=== PATIENT | male | born 1965 | race Asian ===

== ENCOUNTER 2020-01-01 19:48 | Emergency (ER) | payer OTHER ==
[2020-01-01] MEDS ORDERED: ACETAMINOPHEN 500 MG TAB PO ONE (20:18)
--- NOTE | 2020-01-01 20:55 | Emergency Department Report ---
ED General Adult HPI - General Chief complaint: Dyspnea/Respdistress Stated complaint: FLU LIKE SYMPTOMS Time Seen by Provider: 01/01/20 20:03 Source: patient, EMS ( EMS documentation not available at time of chart dictation ), RN notes reviewed Mode of arrival: Stretcher Limitations: No Limitations - History of Present Illness Initial comments: Please note that for the entire history and physical examination, I had on complete personal protective equipment The patient is a 54-year-old gentleman. He is not known to myself previously. He states he does not have any chronic medical conditions. He presents to the ER with a complaint of painless weakness for 1 day. No cough. No sore throat, no rhinorrhea. Patient has been going outside, and working, he works in construction, however, he reports using a facemask. He believes that he is had decreased appetite for a few days, mild generalized weakness, but today, he felt quite weak while taking a shower. There is no complaint of headache, neck pain, chest pain, abdominal pain, shortness of breath, focal extremity weakness and or numbness, and/or urinary symptoms. The patient does not describe exacerbating or relieving factors, or radiation. -: days(s) Severity scale (0 -10): 0 Quality: other Consistency: other Improves with: other Worsens with: other Associated Symptoms: other - Related Data Previous Rx's Medication Instructions Recorded Last Taken Type Acetaminophen [Non-Aspirin Extra 500 mg PO Q6HR PRN #30 tablet 01/01/20 Unknown Rx Strength] Albuterol Sulfate [Proair 90 mcg IH Q4HR PRN #2 aer.pow.ba 01/01/20 Unknown Rx Respiclick] Amoxicillin [Trimox CAP] 1,000 mg PO Q8H #28 capsule 01/01/20 Unknown Rx Azithromycin [Zithromax TAB] 250 mg PO QDAY #4 tablet 01/01/20 Unknown Rx Allergies Allergy/AdvReac Type Severity Reaction Status Date / Time No Known Allergies Allergy Unverified 01/01/20 20:09 ED Review of Systems ROS: Stated complaint: FLU LIKE SYMPTOMS Other details as noted in HPI Constitutional: fever, malaise, weakness Eyes: denies: eye discharge ENT: denies: congestion Respiratory: denies: wheezing Cardiovascular: denies: syncope Gastrointestinal: denies: abdominal pain Genitourinary: denies: dysuria Musculoskeletal: as per HPI Skin: as per HPI Neurological: as per HPI, weakness Psychiatric: as per HPI ED Past Medical Hx - Past Medical History Previous Medical History?: No - Surgical History Past Surgical History?: No - Social History Smoking Status: Never Smoker Substance Use Type: None - Medications Home Medications: Home Medications Medication Instructions Recorded Confirmed Last Taken Type Acetaminophen [Non-Aspirin Extra 500 mg PO Q6HR PRN #30 tablet 01/01/20 Unknown Rx Strength] Albuterol Sulfate [Proair 90 mcg IH Q4HR PRN #2 aer.pow.ba 01/01/20 Unknown Rx Respiclick] Amoxicillin [Trimox CAP] 1,000 mg PO Q8H #28 capsule 01/01/20 Unknown Rx Azithromycin [Zithromax TAB] 250 mg PO QDAY #4 tablet 01/01/20 Unknown Rx ED Physical Exam - General Limitations: No Limitations General appearance: alert, anxious - Head Head exam: Present: atraumatic, normocephalic - Eye Eye exam: Present: normal appearance, EOMI. Absent: nystagmus - ENT ENT exam: Present: normal exam, mucous membranes moist, normal external ear exam, other (Speaking in full sentences, with no stridor or dysphonia) - Neck Neck exam: Present: normal inspection, full ROM. Absent: tenderness, meningismus - Respiratory Respiratory exam: Absent: respiratory distress, stridor - Cardiovascular Cardiovascular Exam: Present: tachycardia - GI/Abdominal GI/Abdominal exam: Present: soft, normal bowel sounds. Absent: distended, tenderness, guarding, rebound, rigid - Rectal Rectal exam: Present: deferred - Extremities Exam Extremities exam: Present: normal inspection, full ROM, other (2+ pulses noted in the bilateral upper and lower extremities. There is no palpable cord. negative Homans sign. Muscular compartments are soft. The pelvis is stable.). Absent: pedal edema, calf tenderness - Back Exam Back exam: Present: normal inspection, full ROM. Absent: tenderness, CVA tenderness (R), CVA tenderness (L), paraspinal tenderness, vertebral tenderness - Neurological Exam Neurological exam: Present: alert, other (There is no facial droop. The tongue is midline. Extraocular movements are intact bilaterally. There is 5 out of 5 strength in bilateral upper and lower extremities. Sensation is intact to light touch bilateral upper and lower extremities. ) - Psychiatric Psychiatric exam: Present: anxious - Skin Skin exam: Present: warm, dry, intact, normal color. Absent: rash ED Course Vital Signs 01/01/20 01/01/20 01/01/20 20:06 20:32 22:16 Temperature 101.2 F H 98.6 F Pulse Rate 102 H 86 Respiratory 25 H 16 19 Rate Blood Pressure 125/68 101/60 [Left] O2 Sat by Pulse 96 100 Oximetry 01/01/20 23:45 Temperature 98.2 F Pulse Rate 72 Respiratory 16 Rate Blood Pressure 112/65 [Left] O2 Sat by Pulse 98 Oximetry - Reevaluation(s) Reevaluation #1: 01/01/20 20:52 Differential diagnosis, including but not limited to: Influenza-like illness, pneumonia, viral syndrome, suspected coronavirus infection Assessment and plan: 54-year-old gentleman with a few days of generalized w eakness, today slightly worse, by history, with fever, low-grade tachycardia, saturating well on room air, suspect coronavirus infection. We will obtain x- ray of the chest, place patient on isolation, and give him acetaminophen for his symptoms. Given lack of desaturation, a few days into his clinical course, lack of endorsed medical comorbidities, the patient is suitable for trial of outpatient management, with generalized supportive care, and return precautions. Reevaluation #2: 01/01/20 21:13 X-ray suggests multi lobar pneumonia, laboratory studies will be sent to risk stratify patient for cytokine storm/acute respiratory distress syndrome. He will also be given fluids, and further observed, before making final disposition decision. Reevaluation #3: 01/01/20 22:38 8.9 mg/dL Corrected Calcium Reevaluation #4: 01/01/20 23:20 Patient observed for hours without clinical decompensation. His vital signs improved, and he passed his exercise tolerance test, able to walk on room air, and not desaturate. Tachycardia resolved, fever resolved, tolerating liquid feeds at this time. This is most likely viral pneumonia, however, we will cover empirically with amoxicillin and azithromycin. Instructions for self isolation and quarantine were discussed with the patient. The patient is suitable at this time for trial of outpatient management. Reevaluation #5: 01/03/20 13:01 Called patient at listed phone number to follow-up, no answer, left voicemail for call back. 04/07/20 13:25 Patient and family member call back. The patient feels like he is doing well. He does not have any significant respiratory distress at this time. The patient endorses that he feels improved. We have rediscussed return precautions. Patient and family verbalized understanding. ED Medical Decision Making - Lab Data Result diagrams: 01/01/20 21:42 01/01/20 21:42 Vital Signs 01/01/20 01/01/20 20:06 20:32 Temperature 101.2 F H Pulse Rate 102 H Respiratory 25 H 16 Rate Blood Pressure 125/68 [Left] O2 Sat by Pulse 96 Oximetry Vital Signs 01/01/20 01/01/20 01/01/20 20:06 20:32 22:16 Temperature 101.2 F H 98.6 F Pulse Rate 102 H 86 Respiratory 25 H 16 19 Rate Blood Pressure 125/68 101/60 [Left] O2 Sat by Pulse 96 100 Oximetry Lab Results 01/01/20 01/01/20 01/01/20 Range/Units 21:42 21:42 21:42 WBC 4.9 (4.5-11.0) K/mm3 RBC 3.07 L (3.65-5.03) M/mm3 Hgb 9.9 L (11.8-15.2) gm/dl Hct 28.4 L (35.5-45.6) % MCV 93 (84-94) fl MCH 32 (28-32) pg MCHC 35 H (32-34) % RDW 13.7 (13.2-15.2) % Plt Count 214 (140-440) K/mm3 Lymph % (Auto) 10.3 L (13.4-35.0) % Carroll % (Auto) 11.0 H (0.0-7.3) % Eos % (Auto) 0.0 (0.0-4.3) % Baso % (Auto) 0.4 (0.0-1.8) % Lymph # 0.5 L (1.2-5.4) K/mm3 Carroll # 0.5 (0.0-0.8) K/mm3 Eos # 0.0 (0.0-0.4) K/mm3 Baso # 0.0 (0.0-0.1) K/mm3 Seg Neutrophils % 78.3 H (40.0-70.0) % Seg Neutrophils # 3.9 (1.8-7.7) K/mm3 ESR 8 (0-20) mm/Hr D-Dimer 277.83 H (0-234) ng/mlDDU Sodium 131 L (137-145) mmol/L Potassium 3.1 L (3.6-5.0) mmol/L Chloride 98.6 (98-107) mmol/L Carbon Dioxide 18 L (22-30) mmol/L Anion Gap 18 mmol/L BUN 18 (9-20) mg/dL Creatinine 0.7 L (0.8-1.5) mg/dL Estimated GFR > 60 ml/min BUN/Creatinine Ratio 26 % Glucose 143 H (75-100) mg/dL Lactic Acid (0.7-2.0) mmol/L Calcium 7.5 L (8.4-10.2) mg/dL Magnesium 1.80 (1.7-2.3) mg/dL Ferritin (13.0-400.0) ng/mL Total Bilirubin 0.50 (0.1-1.2) mg/dL AST 51 H (5-40) units/L ALT 36 (7-56) units/L Alkaline Phosphatase 54 (35-129) units/L Total Creatine Kinase 97 (55-170) units/L C-Reactive Protein 3.60 H (0.00-1.30) mg/dL Total Protein 8.8 H (6.3-8.2) g/dL Albumin 2.3 L (3.9-5) g/dL Albumin/Globulin Ratio 0.4 % 01/01/20 01/01/20 Range/Units 21:42 21:42 WBC (4.5-11.0) K/mm3 RBC (3.65-5.03) M/mm3 Hgb (11.8-15.2) gm/dl Hct (35.5-45.6) % MCV (84-94) fl MCH (28-32) pg MCHC (32-34) % RDW (13.2-15.2) % Plt Count (140-440) K/mm3 Lymph % (Auto) (13.4-35.0) % Carroll % (Auto) (0.0-7.3) % Eos % (Auto) (0.0-4.3) % Baso % (Auto) (0.0-1.8) % Lymph # (1.2-5.4) K/mm3 Carroll # (0.0-0.8) K/mm3 Eos # (0.0-0.4) K/mm3 Baso # (0.0-0.1) K/mm3 Seg Neutrophils % (40.0-70.0) % Seg Neutrophils # (1.8-7.7) K/mm3 ESR (0-20) mm/Hr D-Dimer (0-234) ng/mlDDU Sodium (137-145) mmol/L Potassium (3.6-5.0) mmol/L Chloride (98-107) mmol/L Carbon Dioxide (22-30) mmol/L Anion Gap mmol/L BUN (9-20) mg/dL Creatinine (0.8-1.5) mg/dL Estimated GFR ml/min BUN/Creatinine Ratio % Glucose (75-100) mg/dL Lactic Acid 1.40 (0.7-2.0) mmol/L Calcium (8.4-10.2) mg/dL Magnesium (1.7-2.3) mg/dL Ferritin 1576.0 H (13.0-400.0) ng/mL Total Bilirubin (0.1-1.2) mg/dL AST (5-40) units/L ALT (7-56) units/L Alkaline Phosphatase (35-129) units/L Total Creatine Kinase (55-170) units/L C-Reactive Protein (0.00-1.30) mg/dL Total Protein (6.3-8.2) g/dL Albumin (3.9-5) g/dL Albumin/Globulin Ratio % - Radiology Data Radiology results: report reviewed, image reviewed interpreted by me: X-ray of the chest suggests multilobar pneumonia Print Report Referring Physician: GREG JADE Patient Name: SHEYLA SANCHEZ Date of : 1965 Sex: Male Report Date: 2020-01-01 Report Status: Finalized Findings [facility] [address] [place] [address] XRay Report Signed Patient: SHEYLA SANCHEZ MR#: [id number] : 1965 Acct:[id number] Age/Sex: 54 / M ADM Date: 01/01/20 Loc: ED Attendi dru Dr: Ordering Physician: GREG JADE MD Date of Service: 01/01/20 Procedure(s): XR chest 1V ap Accession Number(s): [id number] cc: GREG JADE MD Fluoro Time In Minutes: CHEST 1 VIEW 01/01/2020 8:23 PM INDICATION / CLINICAL INFORMATION: Flulike symptoms. COMPARISON: None available. FINDINGS: SUPPORT DEVICES: None. HEART / MEDIASTINUM: No significant abnormality. LUNGS / PLEURA: There are bibasilar airspace opacities without a significant pleural effusion or pneumothorax. ADDITIONAL FINDINGS: No significant additional findings. IMPRESSION: Bibasilar opacities are concerning for pneumonia. Radiographic follow-up to resolution is recommended. Signer Name: Alberto Puente MD Signed: 01/01/2020 9:30 PM Workstation Name: [id number] Transcribed By: [place] Dictated By: Alberto Puente MD Electronically Authenticated By: Alberto Puente MD Signed Date/Time: 01/01/202129 DD/ 28 TD/TT: Critical care attestation.: If time is entered above; I have spent that time in minutes in the direct care of this critically ill patient, excluding procedure time. ED Disposition Clinical Impression: Suspected 2019 novel coronavirus infection Disposition: DC-01 TO HOME OR SELFCARE Is pt being admited?: No Does the pt Need Aspirin: No Condition: Stable Instructions: COVID-19 Additional Instructions: As we discussed, patient is suspected of having coronavirus. Recommend that patient remain at home and self isolate and quarantine for total of 14 days since the onset of symptoms. Recommend that patient wash hands with soap and water often and thoroughly, wear a mask at all times, and drink 4 to 6 cups of water per day. Advance diet as tolerated, take the Tylenol as needed for pain, fever, malaise and fatigue, recommend following up with the medical physician in 3 to 5 days for repeat checkup and/or evaluation. Take the antibiotics as directed, cultures were sent today, and results will be available in the next 3 to 5 days. Please have your primary care doctor contact the medical records department to obtain culture results. Please return to the emergency room right away with new, worsened or different symptoms, or symptoms not present on the initial emergency room evaluation. Avoid consumption of alcohol, tobacco, and smoke products. Prescriptions: Acetaminophen [Non-Aspirin Extra Strength] 500 mg PO Q6HR PRN #30 tablet PRN Reason: Pain , Severe (7-10) Albuterol Sulfate [Proair Respiclick] 90 mcg IH Q4HR PRN #2 aer.pow.ba PRN Reason: Wheezing Amoxicillin [Trimox CAP] 1,000 mg PO Q8H #28 capsule Azithromycin [Zithromax TAB] 250 mg PO QDAY #4 tablet Referrals: HOUSTON PEOPLES MD [Staff Physician] - 3-5 Days [facility] [Provider Group] - 3-5 Days [facility] [Provider Group] - 3-5 Days Forms: Work/School Release Form(ED)
[2020-01-01] MEDS ORDERED: SODIUM CHLORIDE 0.9% 1000 ML 2,000 ML IV ONE (21:12)
--- NOTE | 2020-01-01 21:35 | XRay Report ---
CHEST 1 VIEW 01/01/2020 8:23 PM INDICATION / CLINICAL INFORMATION: Flulike symptoms. COMPARISON: None available. FINDINGS: SUPPORT DEVICES: None. HEART / MEDIASTINUM: No significant abnormality. LUNGS / PLEURA: There are bibasilar airspace opacities without a significant pleural effusion or pneu mothorax. ADDITIONAL FINDINGS: No significant additional findings. IMPRESSION: Bibasilar opacities are concerning for pneumonia. Radiographic follow-up to resolution is recommended . Signer Name: Alberto Puente MD Signed: 01/01/2020 9:30 PM Workstation Name: [id number]
[2020-01-01 21:56] LABS: Basophils % (Auto) 0.4 % (0.0-1.8); Hematocrit 28.4 % (35.5-45.6); Hemoglobin 9.9 gm/dl (11.8-15.2); Lymphocytes # (Auto) 0.5 K/mm3 (1.2-5.4); Lymphocytes % (Auto) 10.3 % (13.4-35.0); Mean Corpuscular HGB Conc 35 % (32-34); Mean Corpuscular Volume 93 fl (84-94); Monocytes # (Auto) 0.5 K/mm3 (0.0-0.8); Platelet Count 214 K/mm3 (140-440); Red Blood Count 3.07 M/mm3 (3.65-5.03); Red Cell Distribution Width 13.7 % (13.2-15.2)
[2020-01-01 22:13] LABS: Erythrocyte Sedimentation Rate 8 mm/Hr (0-20)
[2020-01-01 22:34] LABS: Alanine Aminotransferase 36 units/L (7-56); Albumin 2.3 g/dL (3.9-5); BUN/Creatinine Ratio 26; Blood Urea Nitrogen 18 mg/dL (9-20); Calcium 7.5 mg/dL (8.4-10.2); Hemolysis Index 3
[2020-01-01] MEDS ORDERED: POTASSIUM CHLORIDE ER 20 MEQ TAB PO ONE (22:35)
[2020-01-01] MEDS ORDERED: AMOXICILLIN 500 MG CAP PO ONE (23:19)
[2020-01-01] MEDS ORDERED: AZITHROMYCIN 250 MG TAB PO ONE (23:19)
[2020-01-01 23:45] VITALS: BP 112/65
== END 2020-01-02 00:30 | disposition home or self-care (01) ==
LOC: ED 19:48
DX: R53.1 Weakness (principal); R63.0 Anorexia
CPT/HCPCS: 36415; 71045; 80053; 82140; 82550; 82728; 83735; 85025; 85379; 85652; 86140; 87040; 99284; J7030